=== PATIENT | male | born 1950 ===

== ENCOUNTER → 2022-02-08 10:36 | Outpatient (CLI) | payer MEDICARE, OTHER, SELFPAY ==
--- NOTE | ~2022-02-08 | MR_ITS ---
MRI of the left shoulder Technique: Axial proton-density fat-sat images, coronal proton density fat-sat and T2 fat-sat images, and sagittal T1-weighted and T2 fat-sat images were acquired. Clinical History: Pain Findings: There is moderate AC joint degenerative change, with subacromial spur present. There is mil d extrinsic compression upon the myotendinous junction region of the supraspinatus muscle. Coracoclav icular, coracoacromial, coracohumeral ligaments appear intact. There is mild supraspinatus tendinosis. No partial or full-thickness tear of the supraspinatus or inf raspinatus tendon seen. Subscapularis tendon is intact. Tendon of the long head of the biceps is inta ct. No definite labral tear identified. There are probable patchy high-grade chondromalacia of the glenoid and humeral head. No joint effusio n the glenohumeral joint. Inferior glenohumeral ligament is intact. No significant fluid distention o f the subacromial/subdeltoid bursa. No muscle atrophy or edema. Impression: Moderate AC joint degenerative change, as detailed above. Mild supraspinatus tendinosis. No partial or full-thickness rotator cuff tear seen. No labral tear is seen. Chondromalacia of the glenohumeral joint, as detailed above. Reviewed, dictated and finalized at location . [facility] [employer] Impression: Moderate AC joint degenerative change, as detailed above. Mild supraspinatus tendinosis. No partial or full-thickness rotator cuff tear s een. No labral tear is seen. Chondromalacia of the glenohumeral joint, as detailed above.
== END ==
PROVIDERS: PCP Family Medicine; Visit Provider Orthopaedic Surgery
DX: M25.512 Pain in left shoulder (principal); G89.29 Other chronic pain; M94.212 Chondromalacia, left shoulder; M77.9 Enthesopathy, unspecified
CPT/HCPCS: 73221